=== PATIENT | male | born 1945 | race Caucasian/White ===

== ENCOUNTER 2017-02-21 06:11 | Inpatient (IN) | payer OTHER ==
[2017-02-08 08:43] LABS: HEMATOCRIT 42.1 % (42.0-52.0); MCH 33.6 pg (26.0-34.0); MCHC 35.7 g/dL (28.0-37.0); MCV 94.1 fL (80.0-100.0); RBC 4.48 mil/uL (4.50-6.00); RDW 13.2 % (10.5-14.5); WBC 6.2 thou/uL (4.0-11.0)
[2017-02-08 08:48] LABS: ALBUMIN 3.9 g/dL (3.4-5.0); CALCIUM 8.7 mg/dL (8.5-10.1); CREATININE 0.7 mg/dL (0.7-1.3)
[2017-02-08 08:52] LABS: URINE BILIRUBIN NEGATIVE (Negative); URINE BLOOD TRACE (Negative); URINE COLOR YELLOW; URINE GLUCOSE-RANDOM* NEGATIVE (Negative); URINE KETONES NEGATIVE (Negative); URINE LEUKOCYTES-REFLEX NEGATIVE (Negative); URINE PROTEIN (DIPSTICK) NEGATIVE (Negative); URINE SPECIFIC GRAVITY >= 1.030 (1.003-1.035); URINE UROBILINOGEN 0.2 E.U./dl (0.2-1.0)
[2017-02-08 08:58] LABS: PROTIME 10.3 Seconds (9.3-11.4)
[2017-02-21] VITALS (9 sets, daily range): BP systolic 102–156; BP diastolic 61–89
[~2017-02-21] VITALS: Ht 172.7 cm; Wt 82.1 kg
--- NOTE | ~2017-02-21 | EKG ---
[address] [address] ELECTROCARDIOGRAM REPORT Name: ROBINA RIVAS Room #: PRE IN [facility]#: [id number] Admission: Attend Phys: Dalton Melendez MD Discharge: Date of : 47 Report #: [id number] THIS REPORT FOR: //name// [facility] Test Date: 2017-02-08 Test Time: 08:16:05 Pat Name: ROBINA RIVAS Department: Room: Gender: M Bus Boy: viry ivan : 1945 Requested By: Dalton Melendez Order Number: [id number] MD: Alli Hassan Measurements Intervals [place] Rate: 56 P: 39 MO: 124 QRS: 48 QRSD: 93 T: -11 QT: 422 QTc: 408 Interpretive Statements Sinus rhythm Borderline T abnormalities, inferior leads Compared to ECG 08/22/2012 02:52:00 T-wave abnormality now present Sinus arrhythmia no longer present Electronically Signed On 02-08-2017 11:01:38 CDT by Alli Hassan [email or web address] <ELECTRONICALLY SIGNED> By: Alli Hassan MD 02/08/17 1101 5 5 Alli Hassan MD /ROSA MARIA
--- NOTE | ~2017-02-21 | O ---
[facility] [address] [place] [address] OPERATIVE REPORT Name: ROBINA RIVAS Room #: 150-7 ADM IN M.R.#: [id number] Admission: 02/21/17 Attend Phys: Dalton Melendez MD Discharge: Date of : 47 Report #: [id number] THIS REPORT FOR: //name// CC: Enrique Melendez PREOPERATIVE DIAGNOSIS: Right knee degenerative joint disease, severe. POSTOPERATIVE DIAGNOSIS: Right knee degenerative joint disease, severe. PROCEDURE: Right total knee arthroplasty. SURGEON: Dalton Melendez MD COBBLER APPRENTICE: JEFFREY Fontenot INDICATIONS FOR COBBLER APPRENTICE: During the course of operation, extensive manipulation, retraction and limb positioning was required. This was afforded to me by my assistant professor. ANESTHESTIC: General. INDICATIONS: See hospital H and P 02/21/2017. IMPLANTS UTILIZED: We used a Cunningham [employer] Nephew knee system. We used a cruciate retaining Legion size 5 press-fit femur. We used a size 5 tibial tray with a 9 mm insert and a 38 mm patella. DESCRIPTION OF PROCEDURE: After adequate general anesthesia had been obtained, the patient's right lower extremity was prepped and draped in the usual meticulous sterile fashion. Limb was exsanguinated with gravity, tourniquet inflated to 350 torr. Anterior midline incision was made, subQ divided sharply. Hemostasis obtained with electrocautery. Medial parapatellar incision was made. Infrapatellar fat pad excised. Medial release performed. We drilled the distal femur and placed the intramedullary guide, placed the distal femoral cutting guide into position and the distal femoral cut was made. We then measured the distal femur. Size 5 was appropriate size for this patient. Marked the distal femur, impacted the cutting guide into position and the anterior, posterior and chamfer cuts were made. Rongeur was used to remove additional osteophytes. At this time, the ACL was transected, tibia translated anteriorly, menisci were excised. Drill was used to drill central portion of the tibia. This hole was enlarged, irrigated, suctioned, and the intramedullary guide placed full length of the tibia. Proximal tibial cutting guide placed at appropriate height. Proximal tibia cut was made. The 5 tray gave us the best coverage on the tibia. [address] [address] OPERATIVE REPORT Name: ROBINA RIVAS Archie Room #: 150-7 ADM IN M.R.#: [id number] Admission: 02/21/17 Attend Phys: Dalton Melendez MD Discharge: Date of : 47 Report #: [id number] We put the trial components in position and with the 9 spacer he had best flexion and extension gap. Patella tracked normally. Patella was then measured, cutting guide clamped into place, patellar cut was made. A 38 template gave us the best coverage. Pedicles were drilled, trial components were put in position. It tracked normally. At this time, the knee was taken through several cycles of flexion and extension. Tibial tray rotation marked. We punched the distal femur, did tibial keel cuts, irrigated the knee with both pulse lavage and antibiotic irrigation. We placed bone plugs in proximal tibia and distal femur. The cement was vacuum mixed and when it reached the appropriate consistency, the knee was thoroughly dried, the tibial tray was cemented into place. Excess cement was removed. The polyethylene was impacted in place and the femur impacted in place and the knee was taken out to 30 degrees of flexion with uniform compression placed across components. Patellar button was then cemented into place and again excess cement was removed. The cement was allowed to fully cure. We did notice little bit of peel of the patellar tendon medially, so I elected to place a 5.5 Arthrex course screw anchor and 2 sutures were used to reinforce the medial portion of the tendon. The majority of the tendon remained detached. The drains were placed superolaterally both deep and superficial. The retinacular layer closed with combination of interrupted ghykeo-fi-wsuok #1 Vicryls as well as running #1 Tevdek. SubQ was closed with 2-0 Monocryl, skin closed with chad. Sterile compressive dressing applied. Tourniquet deflated. By: [id number] Dalton Melendez MD /lidia
[~2017-02-21 06:11] MED LIST: ASHWAGANDHA PO; ASPIR 8181 MG PO; ASTRAGALUS ROOT1 GM PO; BACOPA PO; CENTRUM SILVER1 EAC2 PO; CO Q-10100 MG PO; FISH OIL 1,2001 EACH PO; GARLIQUE5000 MCG PO; GINGER ROOT550 MG PO; GINKGO BILOBA120 M1 PO; GINSENG250 MG PO; GREEN TEA CAPL1 EACH PO; LIPITOR80 MG PO; MELOXICAM7.5 MG; MOBIC15 MG PO; SHILAJIT PO; SILYMARIN PO; SLOW-MAG64 M1 PO; TRICOR48 MG PO; TURMERIC500 M2 PO; VITAMINC500 PO; XANAX 0.25 MG0.25 MG PO; ZOCOR 20 MG TAB20 M1
[2017-02-22] VITALS (7 sets, daily range): BP systolic 112–132; BP diastolic 48–66
[2017-02-22 06:13] LABS: HEMATOCRIT 32.7 % (42.0-52.0); HEMOGLOBIN 11.6 gm/dL (14.0-18.0); MCH 33.6 pg (26.0-34.0); MCHC 35.5 g/dL (28.0-37.0); MCV 94.4 fL (80.0-100.0); RBC 3.46 mil/uL (4.50-6.00); RDW 12.9 % (10.5-14.5); WBC 9.7 thou/uL (4.0-11.0)
[2017-02-23 03:18] VITALS: BP 146/69
[2017-02-23 06:07] LABS: HEMATOCRIT 30.1 % (42.0-52.0); HEMOGLOBIN 10.6 gm/dL (14.0-18.0); MCH 33.2 pg (26.0-34.0); MCHC 35.3 g/dL (28.0-37.0); MCV 93.9 fL (80.0-100.0); RBC 3.2 mil/uL (4.50-6.00); WBC 12.7 thou/uL (4.0-11.0)
[2017-02-23] MEDS ORDERED: XARELTO10 MG PO (06:38)
[2017-02-23] MEDS ORDERED: PERCOCET 10-321 EACH PO (06:38)
[2017-02-23 08:35] VITALS: BP 131/54
[2017-02-23 20:00] VITALS: BP 146/58
[2017-02-24 03:54] LABS: HEMATOCRIT 26.9 % (42.0-52.0); HEMOGLOBIN 9.4 gm/dL (14.0-18.0); MCH 33.1 pg (26.0-34.0); MCHC 35.1 g/dL (28.0-37.0); MCV 94.5 fL (80.0-100.0); RBC 2.85 mil/uL (4.50-6.00); RDW 12.9 % (10.5-14.5); WBC 13.1 thou/uL (4.0-11.0)
[2017-02-24 04:30] VITALS: BP 153/73
[2017-02-24 07:26] VITALS: BP 142/59
[2017-02-24] MEDS ORDERED: IRON325 PO (07:51)
[2017-02-24] MEDS ORDERED: COLACE 100 MG100 MG PO (07:53)
[2017-02-24] MEDS ORDERED: SENNA8.6 MG PO (07:53)
[2017-02-24] MEDS ORDERED: MIRALAX17 GM PO (07:55)
[2017-02-24 16:01] VITALS: BP 113/63
== END 2017-02-24 16:05 | disposition home health service (06) | DRG 470 ==
LOC: 4N 06:11 → TBA 06:11 → PRE 07:47 → 4N 12:10 → ENTRNSPT 02-24 15:23 → EDTRNSPTSTS 02-24 15:27 → 4N 02-24 16:05
PROVIDERS: Orthopaedic Surgery
PROC: 0SRC0J9 Replacement of Right Knee Joint with Synthetic Substitute, Cemented, Open Approach (ICD-10-PCS; principal; 2017-02-21)
DX: M17.11 Unilateral primary osteoarthritis, right knee (principal); D62 Acute posthemorrhagic anemia; E78.5 Hyperlipidemia, unspecified; T40.605A Adverse effect of unspecified narcotics, initial encounter; K59.00 Constipation, unspecified; Y92.89 Other specified places as the place of occurrence of the external cause
CPT/HCPCS: 10790; 50010; 50101; 50415; 50637; 50954; 51130; 51225; 51320; 51412; 51771; 52001; 53000; 53078; 53365; 56525; 56527; 62110; 62900; 64042; 70005